=== PATIENT | male | born 1985 | race African-American/Black ===

== ENCOUNTER 2017-04-17 12:36 | Emergency (ER) | payer MEDICAID ==
[~2017-04-17] VITALS: Ht 180.3 cm; Wt 93.0 kg
[2017-04-17] MEDS ORDERED: KETOROLAC 60MG/2ML VIAL IM ONE (14:30)
[2017-04-17 14:57] LABS: CLARITY URINE CLOUDY (CLEAR); COLOR URINE YELLOW (YELLOW); KETONES URINE TRACE (NEGATIVE); LEUKOCYTE ESTERASE URINE NEGATIVE (NEGATIVE); NITRITE URINE NEGATIVE (NEGATIVE); OCCULT BLOOD URINE NEGATIVE (NEGATIVE); PROTEIN URINE NEGATIVE (NEGATIVE); SPECIFIC GRAVITY URINE 1.037 (1.005-1.030); UROBILINOGEN URINE 0.2 E.U./dL (0.2-1.0)
[2017-04-17 16:15] VITALS: BP 135/66
== END 2017-04-17 17:24 | disposition home or self-care (01) ==
LOC: ER 12:36
DX: M54.5 Low back pain (principal)
CPT/HCPCS: 81003; 96372; 99283; J1885

== ENCOUNTER 2017-11-21 11:31 | Emergency (ER) | payer MEDICAID ==
[~2017-11-21] VITALS: Ht 180.3 cm; Wt 93.0 kg
[2017-11-21] MEDS ORDERED: SODIUM CHLORIDE 0.9% 1,000 ML IV ONE (12:22)
[2017-11-21] MEDS ORDERED: KETOROLAC 30MG/ML VIAL IV STA (12:22)
[2017-11-21] MEDS ORDERED: CEFTRIAXONE 1 G PREMIX 50 ML IV ONE (12:30)
[2017-11-21] MEDS ORDERED: LIDOCAINE 1%/EPI 1:100,000 10 ML VIAL IJ ONE (12:30)
[2017-11-21] MEDS ORDERED: TETRACAINE/BENZOCAINE/BUTAMBEN 20 GM SPRAY MM ONE (12:30)
[2017-11-21] MEDS ORDERED: DEXAMETHASONE 10 MG/ML VIAL IV ONE (12:30)
[2017-11-21] MEDS ORDERED: LIDOCAINE HCL/EPINEPHRINE 1%-EPI 1:100,000 20 ML VIAL INFIL NR (13:02)
[2017-11-21 14:02] LABS: BASOPHILS % 0.4 % (0.0-2.0); EOSINOPHILS % 0.6 % (0.0-5.0); HEMOGLOBIN. 12.7 g/dL (14.0-18.0); LYMPHOCYTES % 13.4 % (20.0-50.0); MEAN CORPUSCULAR HEMOGLOBIN 30.9 pg (28.0-32.0); MEAN CORPUSCULAR VOLUME 87.7 fL (80.0-94.0); MEAN PLATELET VOLUME 8.2 fl (7.4-10.4); MONOCYTES % 10.5 % (2.0-8.0); NEUTROPHILS % 75.1 % (40.0-76.0); PLATELET 229 x1000/uL (130-400); RED CELL DISTRIBUTION WIDTH 13.6 % (11.6-14.6)
[2017-11-21 14:07] LABS: CHLORIDE 107 mEq/L (98-107)
[2017-11-21] MEDS ORDERED: MORPHINE SULFATE 4 MG/ML CPJ (NOT FOR IM USE) IV ONE (17:15)
[2017-11-21 19:18] VITALS: BP 124/64
== END 2017-11-21 19:25 | disposition short-term general hospital (02) ==
LOC: ER 12:33
DX: J36 Peritonsillar abscess (principal)
CPT/HCPCS: 36415; 42700; 80053; 85025; 87070; 87430; 96365; 96375; 99285; J0696; J1100; J1885; J2270; J3490; J7030; Z7610

== ENCOUNTER 2019-05-31 13:47 | Emergency (ER) | payer MEDICAID ==
[~2019-05-31] VITALS: Ht 180.3 cm; Wt 95.5 kg
[2019-05-31] MEDS ORDERED: ACETAMINOPHEN WITH CODEINE 300/30MG TABLET PO ONE (14:15)
[2019-05-31 15:45] VITALS: BP 119/69
== END 2019-05-31 15:46 | disposition home or self-care (01) ==
LOC: ER 14:09
DX: S20.211A Contusion of right front wall of thorax, initial encounter (principal); W11.XXXA Fall on and from ladder, initial encounter; Y93.89 Activity, other specified; Y92.89 Other specified places as the place of occurrence of the external cause
CPT/HCPCS: 71101; 99283

== ENCOUNTER 2020-07-05 23:15 | Emergency (ER) | payer MEDICAID, OTHER ==
[~2020-07-05] VITALS: Ht 180.3 cm; Wt 98.0 kg
[2020-07-06] MEDS ORDERED: TETRACAINE 0.5% OPHTH DROPS 4ML BOTHEYE ONE
[2020-07-06] MEDS ORDERED: FLUORESCEIN SODIUM 1MG/STRIP BOTHEYE ONE
[2020-07-06] MEDS ORDERED: FLUORESCEIN SODIUM 1MG/STRIP BOTHEYE SCH (01:00)
[2020-07-06] MEDS ORDERED: TRIMO EACHEYE (01:24)
[2020-07-06] MEDS ORDERED: IBUPROFEN 600MG TABLET PO ONE (01:30)
[2020-07-06 02:25] VITALS: BP 121/77
== END 2020-07-06 02:31 | disposition home or self-care (01) ==
LOC: ER 23:15
DX: H10.89 Other conjunctivitis (principal)
CPT/HCPCS: 99284

== ENCOUNTER 2021-04-14 06:23 | Emergency (ER) | payer MEDICAID, OTHER ==
[~2021-04-14] VITALS: Ht 180.3 cm; Wt 102.0 kg
[~2021-04-14 06:23] MED LIST: TRIMO EACHEYE
[2021-04-14 06:26] VITALS: BP 137/86
[2021-04-14] MEDS ORDERED: ACETAMINOPHEN 325MG TABLET PO ONE (07:15)
[2021-04-14] MEDS ORDERED: DEXAMETHASONE 4MG/ML 1ML VIAL IV ONE (07:15)
[2021-04-14] MEDS ORDERED: TOPUD PO (07:21)
[2021-04-14] MEDS ORDERED: CLIN300C12 PO (07:21)
[2021-04-14] MEDS ORDERED: DEXAMETHASONE 4MG/ML 1ML VIAL IM ONE (07:45)
== END 2021-04-14 08:00 | disposition home or self-care (01) ==
LOC: ER 06:23
DX: J02.0 Streptococcal pharyngitis (principal); Z20.822 Contact with and (suspected) exposure to COVID-19
CPT/HCPCS: 87426; 87430; 96372; 99283; Z7610; J1100